=== PATIENT | male | born 1955 | race Hispanic/Latino ===

== ENCOUNTER → 2017-09-30 | Day surgery (SDC) | payer OTHER ==
[2017-09-27 13:01] LABS: BASOPHILS # (AUTO) 0.1 (0.0-0.1); BASOPHILS % 0.7 % (0.0-1.0); EOSINOPHILS # (AUTO) 0.5 (0.0-0.4); EOSINOPHILS % 4.5 % (0.0-6.0); HEMOGLOBIN 14.7 g/dL (14.0-18.0); LYMPHOCYTES # (AUTO) 2.8 (1.0-3.2); LYMPHOCYTES % 26.5 % (18.0-39.1); MEAN CORPUSCULAR HEMOGLOBIN 29.6 pg (28-32); MEAN CORPUSCULAR HGB CONC 34.2 g/dL (31-35); MEAN CORPUSCULAR VOLUME 86.7 fL (81-99); MONOCYTES # (AUTO) 0.8 (0.2-0.8); MONOCYTES % 7.9 % (4.4-11.3); NEUTROPHILS # (AUTO) 6.3 (2.1-6.9); NEUTROPHILS % 59.7 % (38.7-80.0); PLATELET COUNT 239 x10e3/uL (140-360); RED BLOOD COUNT 4.96 x10e6/uL (4.3-5.7); RED CELL DISTRIBUTION WIDTH 11.7 % (11.7-14.4)
[2017-09-27 13:18] LABS: ANION GAP 18.2 mmol/L (8-16); CALCIUM 9.9 mg/dL (8.4-10.2); CREATININE, SERUM 1.27 mg/dL (0.72-1.25); POTASSIUM 5.2 mmol/L (3.5-5.1)
--- NOTE | 2017-09-27 13:34 | Diagnostic Imaging Report ---
PROCEDURE: Frontal and lateral views of the chest. COMPARISON: None. INDICATIONS: PRE OPERATIVE CHEST X-RAY VASECTOMY FINDINGS: Lines/tubes: None. Lungs: The lungs are well inflated and clear. There is no evidence of pneumonia or pulmonary edema. Pleura: There is no pleural effusion or pneumothorax. Heart and mediastinum: The heart and the mediastinum are normal. Bones: No acute bony abnormality. IMPRESSION: 1. No acute cardiopulmonary disease. Dictated by: Naun Villegas M.D. on 09/27/2017 at 13:35 Electronically approved by: Naun Villegas M.D. on 09/27/2017 at 13:35
[~2017-09-30] MED LIST: AMLODIPINE BESY10 MG PO; BENAZEPRIL HCL10 MG PO; BUPIVACAINE 0.25% 30ML SDV INJ ONE; CEFTRIAXONE SOD 1 GM VIAL ONE; DEXAMETHASONE SOD PHOS INJ 4 MG/ML VIAL ONE; FENTANYL CITRATE/PF 100MCG/2 ML INJ ONE; INSULIN REGULAR, HUMAN 100 UNIT/1 ML 3ML VIAL ONE; LIDOCAINE HCL 2% LOCAL INJ 5 ML SDV VIAL INJ ONE; METFORMIN HCL500 M2 PO; MIDAZOLAM HCL 2 MG/2 ML VIAL ONE; MINOXIDIL2.5 MG PO; NEOMYCIN/POLYMYX/BACITR OINT 0.9 GM PKT ONE; ONDANSETRON HCL INJ 2 MG/ML VIAL ONE; PROPOFOL IV EMULSION 10 MG/ML 20 ML VIAL ONE; ROCURONIUM BROMIDE 10 MG/ML 5ML VIAL ONE; SEVOFLURANE INHAL SOLN 250 ML PEN BTL ONE; TRADJENTA5 MG PO; VIT D PO
--- OUTSIDE RECORDS SUMMARY | 2017-09-30 07:04 | XMS REPORT ---
Author Author [facility] Address Unknown Phone Unavailable Care Team Providers Care Specialties Operator Name Role Phone NEFTALI ESPINOZA Unavailable Unavailable Problems This patient has no known problems. Allergies, Adverse Reactions, Alerts This patient has no known allergies or adverse reactions. Medications This patient has no known medications. Results Test Description Test Time Test Comments Text Results Atomic Results Result Comments CHEST [address] [address] Patient Name: BRIAN CASTRO JR MR #: [id number] : 1955 Age/Sex: 62/M Req # : [id number] [facility] Physician: Ordered by: NEFTALI ESPINOZA MD Report #: [id number] Location: OR Room/Bed: Procedure: [id number] DX/CHEST 2 VIEWS Exam Date: 09/27/17 Exam Time : 1240 REPORT STATUS: Signed PROCEDURE: Frontal and lateral views of the chest. COMPARISON: None. INDICATIONS: PRE OPERATIVE CHEST X- RAY VASECTOMY FINDINGS: Lines/tubes: None. Lungs: The lungs are well inflated and clear. There is no evidence of pneumonia or pulmonary edema. Pleura: There is no pleural effusion or pneumothorax. Heart and mediastinum: The heart and the mediastinum are normal. Bones: No acute bony abnormality. IMPRESSION: 1. No acute cardiopulmonary disease. Dictated by: Malka Villegas M.D. on 09/27/2017 at 13:35 Electronically approved by: Malka Villegas M.D. on 09/27/2017 at 13:35 Dictated By: MALKA VILLEGAS MD [id number] Transcribed By: RANJANA on 09/27/17 1330 COPY TO: NEFTALI ESPINOZA MD
--- NOTE | 2017-10-07 09:42 | Operative Report ---
DATE OF PROCEDURE: September 30, 2017 PREOPERATIVE DIAGNOSES 1. Fecundity. 2. Phimosis. POSTOPERATIVE DIAGNOSES 1. Fecundity 2. Phimosis. PROCEDURES PERFORMED 1. Bilateral segmental vasectomy. 2. Circumcision. ANESTHESIA: General anesthesia. ESTIMATED BLOOD LOSS: Minimal. INDICATIONS: Mr. Artur Cruz is a 62-year-old gentleman who has phimosis and a desire for permanent sterilization. He now presents for definitive surgical management of the above problems. PROCEDURE IN DETAIL: The patient was brought into the operating room and placed in the supine position. After administration of general anesthesia, was prepped and draped in the usual sterile fashion. The right vas was palpated through the right hemiscrotum. A 1-cm incision was made over the vas on the right hemiscrotum. Dissection was carried through the scrotal wall until the vas was grasped and dissected from its surrounding sheath. The vas was clipped in a proximal and distal location, and a 1-cm gap was removed between the 2 clips. The skin was then reapproximated and closed using a figure-of-8 chromic suture. A similar procedure was performed on the contralateral side. Again, a 1-cm segment was removed after clips were placed proximally and distally on the vas. The clipped edges were also fulgurated using electrocautery device. Again, the skin was closed using a figure-of-8 chromic suture. Once the vasectomy was complete, attention was turned towards the circumcision. With the prepuce skin in its normal anatomical position, a circumferential incision was made at the level of the wall. The foreskin was then retracted with mild to moderate difficulty. , a circumferential incision was made approximately 5 mm proximal to the wall. The intervening tissue between these 2 incisions was removed. Hemostasis obtained using electrocautery device. Once adequate hemostasis was secured, the skin edges were reapproximated and closed using interrupted chromic sutures. The wound was then clean and dry, and then covered with Mastisol and a circumferential Tegaderm dressing. A penile block was performed using 0.25% plain Marcaine. Anesthesia was reversed. The patient was transferred to a bed and taken to the postanesthesia care unit in good condition. Of note, the needle and instrument count were correct at the conclusion of the case. Job#: [id number] LIZ ROD
== END | disposition home or self-care (01) ==
LOC: OR 07:02
PROVIDERS: ATTEND Urology
DX: N47.1 Phimosis (principal); Z30.2 Encounter for sterilization; N47.7 Other inflammatory diseases of prepuce; N32.0 Bladder-neck obstruction; G47.33 Obstructive sleep apnea (adult) (pediatric); E11.22 Type 2 diabetes mellitus with diabetic chronic kidney disease; I12.9 Hypertensive chronic kidney disease with stage 1 through stage 4 chronic kidney disease, or unspecified chronic kidney disease; N18.9 Chronic kidney disease, unspecified; Z01.810 Encounter for preprocedural cardiovascular examination; Z01.812 Encounter for preprocedural laboratory examination; Z01.818 Encounter for other preprocedural examination; Z68.38 Body mass index [BMI] 38.0-38.9, adult
CPT/HCPCS: 36415 ×2; 54161; 55250; 71046; 80048; 82948; 85025; 88302; 88304; 93005; J0696; J1100; J2001; J2250; J2405